=== PATIENT | female | born 1995 | race Native Hawaiian/Other Pacific Islander ===

== ENCOUNTER 2022-06-07 09:44 | Emergency (ER) | payer BC, SELFPAY ==
[2022-06-07 09:52] VITALS: BP 135/82; PULSE 97; RESP 18; TEMP 36.3; O2SAT 100; BMI 28.5
--- NOTE | 2022-06-07 10:12 | CRLHL7_ITS ---
For Patients: As a result of the Century Cures Act, medical imaging exams and procedure reports are released immediately into your electronic medical record. You may view this report before your referring provider. If you have questions, please contact your health care provider. INDICATION: Shortness of breath. TECHNIQUE: Two-view chest. FINDINGS: Clear lungs. Normal heart size and pulmonary vascularity. Mild thoracolumbar curvature. IMPRESSION: Negative chest. Dictated by Anthony Arita MD @ 06/07/2022 10:56:10 AM (Electronically Signed)
--- NOTE | 2022-06-07 10:12 | ED.GENADULT ---
HPI - General Adult General Chief complaint: Shortness of Breath/Dyspnea Stated complaint: Shortness of breath Time Seen by Provider: 06/07/22 10:01 History of Present Illness HPI narrative: This 27-year-old female comes in reporting feeling of chest tightness or shortness of breath over the past couple weeks. She states that this began a couple weeks ago with some allergy symptoms that also included a headache. Since then she feels like her breathing is little more heavy and she reports some occasional chest pain related to breathing in the left upper chest. She has not had any fevers. She does not report any current cough or nasal congestion. She does not have a history of reactive airway symptoms. She is not taking any medications. She is not a smoker but her boyfriend vapes. Related Data Previous Rx's Medication Instructions Recorded methylprednisolone 4 mg tablets in See Rx Instructions PO .COMPLEX 06/07/22 a dose pack (Medrol (Delroy)) #21 ea Allergies Allergy/AdvReac Type Severity Reaction Status Date / Time No Known Drug Allergies Allergy Verified 06/07/22 09:52 Review of Systems Status of ROS: Reports: 10 or more systems reviewed and unremarkable except as noted in History and below Narrative: Constitutional: No fevers, no weight gain or loss. Eyes: No discharge. No vision changes. HENT: No congestion, no sore throat, no ear pain. Cardiovascular: No chest pain, no palpitations. Respiratory: No wheezes, no cough. She reports shortness of breath. Gastrointestinal: No abdominal pain, no vomiting, no diarrhea. Genitourinary: No dysuria, no hematuria. Musculoskeletal: Normal range of motion. Skin: No rashes, no pruritis. Neurological: No dizziness, weakness, sensory change, speech change. Endo/Heme/Allergies: No bruising or bleeding. No polydipsia. Pysch: no suicidality, no anxiety, no insomnia. All other systems reviewed and are negative. PFSH PFSH Social History Smoking Status: Never smoker How often do you have a drink containing alcohol: monthly or less AUDIT-C Alcohol total score: 1 Non-prescribed substance use: denies use service: No Exam Narrative: Exam Narrative: Constitutional: Well-developed, well-nourished, no acute distress. HEENT: Normocephalic, atraumatic. Neck: Normal range of motion. Nontender. Supple. Heart: Regular. No murmurs. Normal rate. Intact distal pulses. Lungs: Clear to auscultation. No wheezes, rhonchi, or rales. Abdomen: Normal bowel sounds. Nontender. No rebound tenderness. Genitalia: Deferred. Back: No midline tenderness. Normal range of motion. Extremities: Normal range of motion. No injury. Skin: Intact. No rash. Warm. No erythema or pallor. Neurologic: No altered sensation. No weakness. Alert and oriented. Psychiatric: No suicidality. No anxiety or depression. No insomnia. Nursing notes and vitals signs are reviewed. Const: Vital Signs, click to edit/add: Vital Signs - 24 hr 06/07/22 09:52 Temperature 97.3 F L Pulse Rate [Right Pulse Oximeter] 97 Respiratory Rate 18 Blood Pressure [Ri ght Upper Arm] 135/82 Pulse Oximetry 100 Oxygen Delivery Me thod Room Air Course Vital Signs Vital signs: Initial Vital Signs Temperature 97.3 F L 06/07/22 09:52 Temperature Source Temporal Artery Scan 06/07/22 09:52 Pulse Rate 97 06/07/22 09:52 Respiratory Rate 18 06/07/22 09:52 Blood Pressure 135/82 06/07/22 09:52 Blood Pressure Mean 99 06/07/22 09:52 Blood Pressure Position Sitting 06/07/22 09:52 Pulse Oximetry 100 06/07/22 09:52 Oxygen Delivery Method Room Air 06/07/22 09:52 Vital Signs Temperature 97.3 F L 06/07/22 09:52 Pulse Rate 97 06/07/22 09:52 Respiratory Rate 18 06/07/22 09:52 Blood Pressure 135/82 06/07/22 09:52 Pulse Oximetry 100 06/07/22 09:52 Oxygen Delivery Method Room Air 06/07/22 09:52 Temperature 97.3 F L 06/07/22 09:52 Pulse Rate 97 06/07/22 09:52 Respiratory Rate 18 06/07/22 09:52 Blood Pressure 135/82 06/07/22 09:52 Pulse Oximetry 100 06/07/22 09:52 Oxygen Delivery Method Room Air 06/07/22 09:52 Medical Decision Making MDM Narrative Medical decision making narrative: This patient comes in with feeling of tightness in her chest with breathing but does arrive with normal vital signs and has normal lung sounds. Chest x-ray shows no sign of infiltrate. She does report some reproducible discomfort in her left anterior chest related to this. She does not have a history of reactive airway symptoms and has oximetry at 100% on room air. Most likely this patient's symptoms are related to chest wall discomfort. I do not hear any wheezes typical of asthma symptoms. She is okay to be discharged home. She did receive a prescription for Medrol Dosepak. I did describe signs and symptoms that would indicate a need for return and re-evaluation. Imaging Data Chest x-ray: Radiologist's impression: Negative chest. Discharge Plan Discharge Clinical Impression: Acute chest wall pain Patient Disposition: Home, Self-Care Condition: Stable Additional Instructions: Take medication as prescribed. Follow up with MD or return if worsening. Prescriptions: New methylprednisolone [Medrol (Delroy)] 4 mg tablets,dose pack See Rx Instructions .ROUTE .COMPLEX Qty: 21 0RF Rx Instructions: orally per package directions Follow Up/Referrals: Provider,Not a Local [Primary Care Provider] - Stand Alone Forms: [employer] Info Instructions
== END 2022-06-07 11:20 | disposition home or self-care (01) ==
PROVIDERS: Emergency Provider Emergency Medicine Emergency Medical Services
DX: R07.89 Other chest pain (principal)
CPT/HCPCS: 71046; 99284